=== PATIENT | female | born 1970 | race Hispanic/Latino ===

== ENCOUNTER 2019-02-13 00:58 | Emergency (ER) | payer BC ==
[2019-02-13] MEDS ORDERED: NAPROXEN 500 MG TABLET ONE (01:20)
== END 2019-02-13 01:34 | disposition home or self-care (01) ==
LOC: EDH 00:58
DX: S90.862A Insect bite (nonvenomous), left foot, initial encounter (principal); I10 Essential (primary) hypertension; E07.9 Disorder of thyroid, unspecified; M19.90 Unspecified osteoarthritis, unspecified site; Z88.5 Allergy status to narcotic agent; Z88.2 Allergy status to sulfonamides; W57.XXXA Bitten or stung by nonvenomous insect and other nonvenomous arthropods, initial encounter; Y93.89 Activity, other specified; Y92.89 Other specified places as the place of occurrence of the external cause; Y99.8 Other external cause status

== ENCOUNTER 2019-12-07 11:03 | Observation (INO) | payer BC, OTHER ==
[~2019-12-07] VITALS: Ht 165.1 cm; Wt 88.5 kg
[2019-12-07 11:56] LABS: BASOPHILS % (AUTO) 0.3 % (0.0-5.0); EOSINOPHILS % (AUTO) 0.5 % (0.0-8.0); LYMPHOCYTES % (AUTO) 15.6 % (21.0-51.0); MEAN CORPUSCULAR HEMOGLOBIN 15.7 pg (27.0-33.0); MEAN CORPUSCULAR HGB CONC 25.2 g/dL (32.0-36.0); MEAN CORPUSCULAR VOLUME 62.3 fL (79-99); MONOCYTES % (AUTO) 4.8 % (3.0-13.0); NEUTROPHILS % (AUTO) 78.1 % (40.0-77.0); NUCLEATED RED BLOOD CELLS 0.7 % (0.0-0.19); PLATELET COUNT (AUTO) 396 K/uL (130-400); RED BLOOD CELL COUNT(AUTO) 3.69 MIL/uL (4.00-5.50); RED CELL DISTRIBUTION WIDTH 20.4 % (11.0-15.5)
[2019-12-07 11:57] LABS: APPEARANCE,URINE Clear (CLEAR); BILIRUBIN,URINE Negative (NEGATIVE); COLOR,URINE Yellow (YELLOW); GLUCOSE, URINE (UA) Negative (NEGATIVE); KETONES,URINE Negative (NEGATIVE); LEUKOCYTE ESTERASE ,URINE Negative (NEGATIVE); NITRATE,URINE Negative (NEGATIVE); OCCULT BLOOD,URINE Negative (NEGATIVE); PROTEIN,URINE Negative (NEGATIVE)
[2019-12-07 12:11] LABS: CREATININE 0.7 mg/dL (0.5-1.5); POTASSIUM 3.1 mmol/L (3.5-5.1)
[2019-12-07 12:18] LABS: INR 0.98 (0.85-1.15); PARTIAL THROMBOPLASTIN TIME 23.1 SEC (26.3-35.5); PROTHROMBIN TIME 10.6 SEC (9.6-11.6)
[2019-12-07 12:30] LABS: % IRON SATURATION 3.2 % (22-44)
[2019-12-07 12:42] LABS: ALBUMIN 3.4 g/dL (3.5-5.0); BILIRUBIN,TOTAL 0.3 mg/dL (0.2-1.0); TOTAL PROTEIN, SERUM 8.1 g/dL (6.0-8.3)
[2019-12-07 12:46] LABS: RETICULOCYTE % (AUTO) 1.57 % (0.42-2.23)
[2019-12-07] MEDS ORDERED: POTASSIUM BICARB/CIT AC 25 MEQ TABLET.EFF ONE (13:05)
[2019-12-07 20:26] LABS: HEMATOCRIT 24.9 % (36-48)
[2019-12-07] MEDS ORDERED: HYDR25TA PO (20:41)
[2019-12-07] MEDS ORDERED: LEFL20TA18 PO (20:41)
[2019-12-07] MEDS ORDERED: LOSA100T58 PO (20:41)
--- NOTE | 2019-12-07 21:12 | NUR ---
PAGED DR. ROLLINS , WENT STRAIGHT TO [facility]ICE MAIL
--- NOTE | 2019-12-07 21:25 | NUR ---
LINE CONSTRUCTION ENGINEER PAGED FOR DR. PIERRE TO REPORT LAB WORK RESULTS PRN PAIN MEDICATION PT STATES SHE HAS A HEAD ACHE AND HOME MEDS LISTED BUT NO CALL BACK YET
[2019-12-07 22:10] LABS: % IRON SATURATION 3.2 % (22-44)
[2019-12-08] VITALS (7 sets, daily range): BP systolic 118–148; BP diastolic 64–90
--- NOTE | 2019-12-08 04:33 | NUR ---
DIRECTOR OF CATERING SALES PAGED AWARE OF PT'S VITAL SIGNS NO ORDERS FOR PRN BP AWARE OF PT'S LABS AND THAT MEDICATIONS WERE ENTERED NO OTHER ORDERS
[2019-12-08 04:40] LABS: BASOPHILS % (AUTO) 0.7 % (0.0-5.0); EOSINOPHILS % (AUTO) 1.1 % (0.0-8.0); HEMATOCRIT 26.2 % (36-48); LYMPHOCYTES % (AUTO) 33.2 % (21.0-51.0); MEAN CORPUSCULAR HEMOGLOBIN 18.9 pg (27.0-33.0); MEAN CORPUSCULAR HGB CONC 28.2 g/dL (32.0-36.0); MEAN CORPUSCULAR VOLUME 66.8 fL (79-99); MONOCYTES % (AUTO) 7.2 % (3.0-13.0); NEUTROPHILS % (AUTO) 57.4 % (40.0-77.0); NUCLEATED RED BLOOD CELLS 0.4 % (0.0-0.19); PLATELET COUNT (AUTO) 311 K/uL (130-400); RED BLOOD CELL COUNT(AUTO) 3.92 MIL/uL (4.00-5.50); RED CELL DISTRIBUTION WIDTH 23.1 % (11.0-15.5); WHITE BLOOD COUNT (AUTO) 5.7 K/uL (4.8-10.8)
[2019-12-08] MEDS: LOSARTAN 100 MG TABLET PO SCH (08:41)
[2019-12-08] MEDS: HYDROCHLOROTHIAZIDE 25 MG TABLET PO SCH (08:41)
[2019-12-08] MEDS: LEFLUNOMIDE 20 MG PO SCH (08:42)
[2019-12-08] MEDS: ACETAMINOPHEN 325 MG TAB PO PRN ×2 (08:42→18:07)
--- NOTE | 2019-12-08 10:59 | NUR ---
DCP: HOME Sw met with pt who works, drives and is independent of all ADLS and home management. Son Washington Peña [phone] and his Mitzi Bell [phone] live with pt. Pt has no DME or in home care services, PCP is [facility] and she uses [facility] for rx. Pt denies dc needs, plan is home at dc Addendum: 12/08/19 at 1102 by SHABBIR DURAN SS Amended: Links added.
[2019-12-08] MEDS ORDERED: COMPOUND IV MISC 1 EACH IVSOLN MISC PRN (13:15)
[2019-12-08] MEDS: IRON SUCROSE COMPLEX 100 MG in SODIUM CHLORIDE 0.9% 50 ML IV SCH (13:15)
[2019-12-08] MEDS ORDERED: POTASSIUM CHLORIDE 20MEQ/100ML 100 ML IV PRN (13:45)
[2019-12-08] MEDS ORDERED: LIDOCAINE HCL-MPF 1% 2ML VIAL IV PRN (13:45)
[2019-12-08] MEDS: POTASSIUM CHLORIDE 10% ELIXIR 20 MEQ/15 ML UDCUP PO PRN ×2 (14:36→17:47)
--- NOTE | 2019-12-08 14:52 | NUR ---
DR PRATT PAGED SENT CONSULT SHEET REQUESTED. SPOKE TO AMY AT OFFICE, STATED SHE WILL LET DR PRATT KNOW OF CONSULT
[2019-12-09] VITALS (19 sets, daily range): BP systolic 114–154; BP diastolic 66–91
[2019-12-09 03:53] LABS: BASOPHILS % (AUTO) 0.7 % (0.0-5.0); EOSINOPHILS % (AUTO) 3.6 % (0.0-8.0); HEMATOCRIT 28.9 % (36-48); LYMPHOCYTES % (AUTO) 29.6 % (21.0-51.0); MEAN CORPUSCULAR HEMOGLOBIN 18.3 pg (27.0-33.0); MEAN CORPUSCULAR HGB CONC 27.3 g/dL (32.0-36.0); MEAN CORPUSCULAR VOLUME 66.9 fL (79-99); MONOCYTES % (AUTO) 9.1 % (3.0-13.0); NEUTROPHILS % (AUTO) 56.8 % (40.0-77.0); NUCLEATED RED BLOOD CELLS 0.4 % (0.0-0.19); PLATELET COUNT (AUTO) 344 K/uL (130-400); RED BLOOD CELL COUNT(AUTO) 4.32 MIL/uL (4.00-5.50); RED CELL DISTRIBUTION WIDTH 23.4 % (11.0-15.5); WHITE BLOOD COUNT (AUTO) 5.6 K/uL (4.8-10.8)
[2019-12-09 04:05] LABS: INR 1.02 (0.85-1.15); PARTIAL THROMBOPLASTIN TIME 25.2 SEC (26.3-35.5)
[2019-12-09 04:16] LABS: CREATININE 0.5 mg/dL (0.5-1.5); POTASSIUM 3.3 mmol/L (3.5-5.1)
[2019-12-09] MEDS: ACETAMINOPHEN 325 MG TAB PO PRN (06:01)
[2019-12-09] MEDS: POTASSIUM CHLORIDE 10% ELIXIR 20 MEQ/15 ML UDCUP PO PRN (06:03)
[2019-12-09] MEDS ORDERED: IRON SUCROSE COMPLEX 100 MG in SODIUM CHLORIDE 0.9% 50 ML IV SCH (09:00)
[2019-12-09] MEDS: HYDROCHLOROTHIAZIDE 25 MG TABLET PO SCH (09:00)
[2019-12-09] MEDS: LEFLUNOMIDE 20 MG PO SCH (09:00)
[2019-12-09] MEDS: IRON SUCROSE COMPLEX 100 MG in SODIUM CHLORIDE 0.9% 50 ML IV SCH (09:56)
[2019-12-09] MEDS: LOSARTAN 100 MG TABLET PO SCH (09:57)
[2019-12-09] MEDS ORDERED: PROPOFOL 10 MG/ML 20ML VIAL IV ONE (14:29)
[2019-12-09] MEDS ORDERED: MAGNESIUM CITRATE 296 ML SOLUTION PO SCH (17:15)
[2019-12-09] MEDS ORDERED: PEG 3350/NA SULF,BICARB,CL/KCL 4000 ML SOLN PO SCH (17:30)
[2019-12-09] MEDS: LACTULOSE 20 GM/30 ML UDCUP PO SCH ×2 (17:53→17:54)
[2019-12-09] MEDS: POTASSIUM CHLORIDE 20 MEQ ERTAB PO PRN ×2 (18:35→22:42)
[2019-12-10] VITALS (12 sets, daily range): BP systolic 101–146; BP diastolic 60–87
--- NOTE | 2019-12-10 07:30 | NUR ---
PATIENT UPDATE NPO post mn, going for Colonoscopy today with MAC. Completed the Golitely prep last night, with good results. Tap water enema administered last night. Last bm this am was clear light yellow liquid, no solid stools. Slept well, no complaints of any abdominal pain, no nausea and vomiting. No signs of bleeding, 2nd enema for this am not given bec of pt's clear returns.
[2019-12-10] MEDS: HYDROCHLOROTHIAZIDE 25 MG TABLET PO SCH (09:00)
[2019-12-10] MEDS: LOSARTAN 100 MG TABLET PO SCH (09:00)
[2019-12-10] MEDS: LEFLUNOMIDE 20 MG PO SCH (09:00)
[2019-12-10] MEDS: IRON SUCROSE COMPLEX 100 MG in SODIUM CHLORIDE 0.9% 50 ML IV SCH (09:39)
[2019-12-10] MEDS ORDERED: SODIUM CHLORIDE 0.9% 1000ML 1,000 ML IV ONE (13:45)
[2019-12-10] MEDS ORDERED: PROPOFOL 10 MG/ML 20ML VIAL IV ONE (14:25)
--- NOTE | 2019-12-10 15:10 | NUR ---
PT ARRIVED BACK TO UNIT FROM COLONOSCOPY. PTS VITAL SIGNS ARE STABLE. DENIES ANY PAIN OR DISCOMFORT AT THIS TIME. PT REMAINS IN BED ON POST-OP VITALS. BED LOCKED AND LOW, CALL LIGHT IN REACH. WILL CONTINUE TO MONITOR.
--- NOTE | 2019-12-10 19:50 | NUR ---
DISCHARGE INSTRUCTIONS GIVEN TO PT, VERBALIZES UNDERSTANDING. IV TAKEN OUT, TIP INTACT. PT WHEELED DOWN TO ER LOBBY BY PEDRO.
[2019-12-11] MEDS ORDERED: PANTOPRAZOLE SODIUM 40 MG TABLET.DR PO SCH (07:30)
[2019-12-11] MEDS ORDERED: POLYETHYLENE GLYCOL 3350 17 GM POWD.PACK PO SCH (09:00)
== END 2019-12-10 19:50 | disposition home or self-care (01) ==
LOC: EDH 11:03 → OBSVTOIN 13:15 → EDHIP 13:15 → INTOOBSV 13:15 → 3BH 20:06
PROVIDERS: ADMIT Internal Medicine Critical Care Medicine; ATTEND Internal Medicine Critical Care Medicine
DX: D50.0 Iron deficiency anemia secondary to blood loss (chronic) (principal); K25.9 Gastric ulcer, unspecified as acute or chronic, without hemorrhage or perforation; K20.0 Eosinophilic esophagitis; K21.0 Gastro-esophageal reflux disease with esophagitis; K44.9 Diaphragmatic hernia without obstruction or gangrene; K64.0 First degree hemorrhoids; K57.30 Diverticulosis of large intestine without perforation or abscess without bleeding; I10 Essential (primary) hypertension; E03.9 Hypothyroidism, unspecified; E87.6 Hypokalemia; E66.9 Obesity, unspecified; M19.90 Unspecified osteoarthritis, unspecified site; Z90.710 Acquired absence of both cervix and uterus; Z91.19 Patient's noncompliance with other medical treatment and regimen; Z96.653 Presence of artificial knee joint, bilateral; Z79.899 Other long term (current) drug therapy; Z68.32 Body mass index [BMI] 32.0-32.9, adult
CPT/HCPCS: 36415 ×4; 36430 ×2; 43239; 45378; 80048; 80053; 81003; 82607; 82728 ×2; 82948; 83540; 83550; 83735; 84132 ×2; 84484; 85014; 85018; 85025 ×3; 85610 ×2; 85730 ×2; 86850; 86900; 86901; 86922; 93005; 96365; 96366 ×2; 99284; A4222; A4223 ×2; A4606; A4615; A4620; A4657; G0378 ×67; J1756 ×2; J2704 ×2; J7030 ×2; P9016 ×2

== ENCOUNTER 2022-11-14 19:03 | Emergency (ER) | payer OTHER ==
[~2022-11-14] VITALS: Ht 162.6 cm; Wt 91.6 kg
[~2022-11-14 19:03] MED LIST: HYDR25TA PO; LEFL20TA18 PO; LOSA100T58 PO
[2022-11-14 20:16] LABS: BASOPHILS % (AUTO) 0.6 % (0.0-5.0); EOSINOPHILS % (AUTO) 6.3 % (0.0-8.0); HEMATOCRIT 34.7 % (36-48); LYMPHOCYTES % (AUTO) 24.6 % (21.0-51.0); MEAN CORPUSCULAR HEMOGLOBIN 21.1 pg (27.0-33.0); MEAN CORPUSCULAR HGB CONC 28.2 g/dL (32.0-36.0); MEAN CORPUSCULAR VOLUME 74.8 fL (79-99); MONOCYTES % (AUTO) 8.2 % (3.0-13.0); PLATELET COUNT (AUTO) 341 K/uL (130-400); RED BLOOD CELL COUNT(AUTO) 4.64 MIL/uL (4.00-5.50); RED CELL DISTRIBUTION WIDTH 17.1 % (11.0-15.5); WHITE BLOOD COUNT (AUTO) 7.9 K/uL (4.8-10.8)
[2022-11-14 20:19] LABS: APPEARANCE,URINE CLEAR (CLEAR); BILIRUBIN,URINE NEGATIVE (NEGATIVE); COLOR,URINE COLORLESS (YELLOW); GLUCOSE, URINE (UA) NEGATIVE (NEGATIVE); KETONES,URINE NEGATIVE (NEGATIVE); LEUKOCYTE ESTERASE ,URINE NEGATIVE Leu/uL (NEGATIVE); NITRATE,URINE NEGATIVE (NEGATIVE); OCCULT BLOOD,URINE NEGATIVE (NEGATIVE); PROTEIN,URINE NEGATIVE (NEGATIVE); UROBILINOGEN,URINE 0.2 mg/dL (0.2-1.0)
[2022-11-14 20:32] LABS: INR 0.96 (0.85-1.15); PROTHROMBIN TIME 10.5 SEC (9.6-11.6)
[2022-11-14 20:34] LABS: PARTIAL THROMBOPLASTIN TIME 23.6 SEC (26.3-35.5); WBC,URINE 0-1 /HPF (0-1)
[2022-11-14 20:35] LABS: ALBUMIN 3.7 g/dL (3.5-5.0); CREATININE 0.7 mg/dL (0.5-1.5); TOTAL PROTEIN, SERUM 8.4 g/dL (6.0-8.3)
[2022-11-14] MEDS ORDERED: KCL 20 MEQ ERTAB PO ONE (22:00)
[2022-11-14] MEDS ORDERED: ENOXAPARIN SODIUM 100 MG/1 ML SQ ONE (22:00)
[2022-11-14] MEDS: ACETAMINOPHEN WITH CODEINE 1 TAB TAB PO ONE ×2 (22:07→22:14)
[2022-11-14] MEDS ORDERED: APIX5TAB PO (22:24)
[2022-11-14] MEDS ORDERED: ACETAMINOPHEN 500 MG TABLET PO ONE (22:30)
[2022-11-14] MEDS ORDERED: IBUPROFEN 600 MG TABLET PO ONE (22:30)
[2022-11-14 22:37] VITALS: BP 134/89
== END 2022-11-14 22:45 | disposition home or self-care (01) ==
LOC: EDH 19:03
DX: I82.403 Acute embolism and thrombosis of unspecified deep veins of lower extremity, bilateral (principal); M19.90 Unspecified osteoarthritis, unspecified site; Z79.01 Long term (current) use of anticoagulants; Z79.1 Long term (current) use of non-steroidal anti-inflammatories (NSAID); Z79.69 Long term (current) use of other immunomodulators and immunosuppressants; Z79.899 Other long term (current) drug therapy; Z88.5 Allergy status to narcotic agent; Z90.49 Acquired absence of other specified parts of digestive tract; Z98.890 Other specified postprocedural states; Z90.710 Acquired absence of both cervix and uterus
CPT/HCPCS: 99284; 80053; 85025; 85610; 85730; 81001; 36415; 96372; 93005; J1650

== ENCOUNTER 2024-08-10 18:01 | Emergency (ER) | payer BC ==
[~2024-08-10] VITALS: Ht 165.1 cm; Wt 103.4 kg
[~2024-08-10 18:01] MED LIST changes: +APIX2.5T PO; +FOLI0.8T3 PO; -HYDR25TA PO; -LEFL20TA18 PO; +LEVO100C4 PO; -LOSA100T58 PO; +MAGN100C6 PO; +METH2.5T6 PO; +PRED5TAB PO; +TELM1TAB42 PO
[2024-08-10 18:55] LABS: BASOPHILS # (AUTO) 0.02 K/uL (0.00-0.20); BASOPHILS % (AUTO) 0.1 % (0.0-5.0); EOSINOPHILS # (AUTO) 0.01 K/uL (0.00-0.70); EOSINOPHILS % (AUTO) 0.1 % (0.0-8.0); HEMATOCRIT 40.6 % (36-48); IMMATURE GRANULOCYTE ABSOLUTE 0.14 K/uL (0-1); LYMPHOCYTES # (AUTO) 0.9 K/uL (1.0-4.8); LYMPHOCYTES % (AUTO) 5.5 % (21.0-51.0); MEAN CORPUSCULAR HEMOGLOBIN 31.6 pg (27.0-33.0); MEAN CORPUSCULAR HGB CONC 32.3 g/dL (32.0-36.0); MEAN CORPUSCULAR VOLUME 97.8 fL (79-99); MONOCYTES # (AUTO) 0.2 K/uL (0.1-1.0); MONOCYTES % (AUTO) 1.4 % (3.0-13.0); NEUTROPHILS # (AUTO) 14.8 K/uL (1.8-7.7); PLATELET COUNT (AUTO) 283 K/uL (130-400); RED BLOOD CELL COUNT(AUTO) 4.15 MIL/uL (4.00-5.50); RED CELL DISTRIBUTION WIDTH 14.7 % (11.0-15.5); WHITE BLOOD COUNT (AUTO) 16.1 K/uL (4.8-10.8)
[2024-08-10] MEDS ORDERED: SULF1TAB42 PO (19:40)
--- NOTE | 2024-08-10 19:41 | ERN ---
ED Note History of Present Illness Stated Complaint: SENT BY PHY Chief Complaint: Abscess Time Seen by MD: 18:07 Time Seen by Midlevel: 18:11 Dictation: 53-year-old female coming in from PCP for evaluation of possible cellulitis to the sacral area. Patient states she had shingles 2-3 weeks ago and thinks one of the pustules became infected around the sacral area. Patient denies having any fever, chills, body aches, nausea, vomiting. Allergies: Coded Allergies: codeine (Verified Allergy, Unknown, 02/28/24) Home Meds Reported Medications Apixaban (Eliquis) 2.5 Mg Tablet, 2.5 MG PO BID, TAB 03/02/24 Magnesium Glycinate (Magnesium Glycinate) 100 Mg Magnesium Capsule, 120 MG PO DAILY, CAP 02/28/24 Prednisone (Prednisone) 5 Mg Tablet, 5 MG PO DAILY, TAB 02/28/24 Folic Acid (Folic Acid) 0.8 Mg Tablet, 1 MG PO DAILY, TAB 02/28/24 Methotrexate Sodium (Methotrexate) 2.5 Mg Tablet, 15 MG PO QWEEK, TAB 02/28/24 Levothyroxine Sodium (Levothyroxine) 100 Mcg Capsule, 100 MCG PO DAILY, CAP 02/28/24 Telmisartan/Hydrochlorothiazid (Telmisartan-Hctz 80-12.5 mg Tb) 80 Mg-12.5 Mg Tablet, 1 EACH PO DAILY, TAB 02/28/24 Past Medical History Past Medical History: Arthritis, DVT, Hypertension, Hypothyroid Surgical History: Hysterectomy, Cholecystectomy, Other Surgical History Other: BILAT KNEE Family History: Negative Social History: Negative Review of System Dictation Constitutional: Negative for fever,chills, and weight loss Eyes: Negative for injury, pain,redness, and discharge ENT: Negative for injury,pain or swelling Cardiovascular: Negative for chest pain, palpitations, and edema Respiratory: Negative for shortness of breath, cough, and wheezing, Abdomen/GI: Negative for abdominal pain, nausea, vomiting, diarrhea, and constipation Back: Negative for injury and pain : Negative for injury, bleeding and discharge MS/Extremity: Negative for injury and deformity Skin: Negative for rash, redness to the sacral area Neuro: Negative for headache, weakness, numbness, tingling, and seizure Psych: Negative for suicide ideation, homicidal ideation, and hallucinations Review of Systems: was completed Initial Vital Sign VS Vital Signs Date Time Temp Pulse Resp B/P (MAP) Pulse Ox O2 Delivery O2 Flow Rate FiO2 08/10/24 18:17 97.2 84 20 166/92 99 0 08/10/24 18:42 Room Air* 21 Physical Exam Dictation General: awake, alert, NAD Head/Face: Normocephalic, atraumatic Eyes: PERRL, EOMI, vision at baseline ENT: oral cavity clear, TMs clear, no signs of infection Neck: Trachea midline, supple, no nuchal rigidity Cardiovascular: RRR, normal S1/S2, No MRGs, no JVD Respiratory: CTAB, no respiratory distress, No rales or wheezes Abdomen: Soft, non-tender, non-distended, normal bowel sounds, no guarding or rebound. Skin: Warm, dry, normal turgor, no rash there is redness and minimal swelling to the sacral area, minimal induration, no need to drain at this time. MS/Extremity: Pulses equal, no cyanosis, neurovascular intact, FROM Neuro: COAx4, GCS 15, strength 5/5, CN 2-12 intact, normal cerebellar exam, normal gait, Psych: Normal behavior, mood, and affect normal Results (Laboratory/Radiology) Laboratory/Radiology Laboratory Tests Test 08/10/24 18:50 White Blood Count 16.1 K/uL (4.8-10.8) H Red Blood Count 4.15 MIL/uL (4.00-5.50) Hemoglobin 13.1 g/dL (12.0-16.0) Hematocrit 40.6 % (36-48) Mean Corpuscular Volume 97.8 fL (79-99) Mean Corpuscular Hemoglobin 31.6 pg (27.0-33.0) Mean Corpuscular Hemoglobin Concent 32.3 g/dL (32.0-36.0) Red Cell Distribution Width 14.7 % (11.0-15.5) Platelet Count 283 K/uL (130-400) Mean Platelet Volume 10.0 fL (7.5-10.5) Immature Granulocyte % (Auto) 0.9 % (0-1) Neutrophils (%) (Auto) 92.0 % (40.0-77.0) H Lymphocytes (%) (Auto) 5.5 % (21.0-51.0) L Monocytes (%) (Auto) 1.4 % (3.0-13.0) L Eosinophils (%) (Auto) 0.1 % (0.0-8.0) Basophils (%) (Auto) 0.1 % (0.0-5.0) Neutrophils # (Auto) 14.8 K/uL (1.8-7.7) H Lymphocytes # (Auto) 0.9 K/uL (1.0-4.8) L Monocytes # (Auto) 0.2 K/uL (0.1-1.0) Eosinophils # (Auto) 0.01 K/uL (0.00-0.70) Basophils # (Auto) 0.02 K/uL (0.00-0.20) Absolute Immature Granulocyte (auto 0.14 K/uL (0-1) Nucleated Red Blood Cells 0.0 % (0.0-0.19) White Cell Morphology Comment See comments Sodium Level 142 mmol/L (136-145) Potassium Level 4.0 mmol/L (3.5-5.1) Chloride Level 102 mmol/L (101-111) Carbon Dioxide Level 29 mmol/L (21-32) Blood Urea Nitrogen 21 mg/dL (7-18) H Creatinine 1.0 mg/dL (0.5-1.0) Glomerular Filtration Rate Calc 67 mL/min (>90) Random Glucose 129 mg/dL (70-105) H Total Calcium 9.4 mg/dL (8.5-10.1) Labs Reviewed?: Yes ED Course ED Course Orders Procedure Category Date Status Time Cbc With Differential LAB 08/10/24 Complete 18:22 Basic Metabolic Panel LAB 08/10/24 Complete 18:22 Vital Signs Date Time Temp Pulse Resp B/P (MAP) Pulse Ox O2 Delivery O2 Flow Rate FiO2 08/10/24 18:42 97.2 84 20 166/92 99 Room Air* 0 21 08/10/24 18:17 97.2 84 20 166/92 99 0 Medical Decision Making MDM MDM: 53-year-old female coming in from [facility] for evaluation of possible cellulitis to the sacral area. Patient states she had shingles 2-3 weeks ago and thinks one of the pustules became infected around the sacral area. Patient denies having any fever, chills, body aches, nausea, vomiting. CBC shows leukocytosis of 16, this could be related to the daily prednisone use, no anemia, no thrombocytopenia. Chemistry unremarkable. Mild hyperglycemia at 1:29 a.m.. Patient's vital signs have remained stable, she is not febrile, not tachycardic. Discussed patient's outpatient option to take antibiotics orally, educated on signs and symptoms of when to return back to the emergency room. Patient verbalized understanding, answered all questions.Patient has a history of RA and takes prednisone 5 mg daily. Differential diagnosis: Abscess, cellulitis, shingles, folliculitis Rationale: Tests considered and ordered secondary to shared decision making include: Previous outside records reviewed: Old ER visits. Risk of complication and/or morbidity or mortality of patient management: None Medications-Per medication reconciliation Need for hospitalization: Patient does not meet criteria for hospitalization. Need for emergency major/minor surgery: No There are no social concerns with this patient. Prescription drug management Prescriptions will include symptomatic care Patient's prior external medical records from other ER visits were reviewed by me as indicated. Prior testing and results from previous visits were reviewed. Prior tests were taken into account with medical decision making and resource utilization, independent historian/historians were used to obtain complete m edical history. I independently interpreted the test that were performed, results were reviewed by me and considered findings on radiology if ordered. Medical management and examination interpretation discussions were had by me with other qualified healthcare professionals as indicated for the patient's care. DX & DISP Disposition: Discharge Departure Impression: Primary Impression: Cellulitis of sacral region Condition: Stable Scripts Sulfamethoxazole/Trimethoprim (Bactrim Ds Tablet) 800 Mg-160 Mg Tablet 1 TAB PO BID for 7 Days, #14 TAB 0 Refills Prov: MARYA CONKLIN METAL STAMPER 08/10/24 Additional Instructions: Take the antibiotics as prescribed. Keep area clean and dry. After starting the antibiotics if you notice the areas worsen or you began to have fever, chills, nausea or vomiting please report back to the emergency room. Referrals: GOLD CELIS FNCOSTA (PCP) Time of Disposition: 19:40 I have reviewed the case, and I agree with, Diagnosis and Plan MARYA CONKLIN NP Aug 10, 2024 19:41
[2024-08-10 19:51] VITALS: BP 152/87; PULSE 80; RESP 20; TEMP 97.2; O2SAT 99
== END 2024-08-10 19:53 | disposition home or self-care (01) ==
LOC: EDH 18:01
DX: L03.312 Cellulitis of back [any part except buttock and flank] (principal); E03.9 Hypothyroidism, unspecified; I10 Essential (primary) hypertension; M19.90 Unspecified osteoarthritis, unspecified site; Z79.01 Long term (current) use of anticoagulants; Z79.52 Long term (current) use of systemic steroids; Z79.890 Hormone replacement therapy; Z86.718 Personal history of other venous thrombosis and embolism; Z88.5 Allergy status to narcotic agent; Z90.49 Acquired absence of other specified parts of digestive tract; Z90.710 Acquired absence of both cervix and uterus
CPT/HCPCS: 36415; 80048; 85025; 99283